=== PATIENT | male | born 1965 | race Caucasian/White ===

== ENCOUNTER 2017-02-24 21:32 | Emergency (ER) | payer OTHER ==
[~2017-02-24] VITALS: Ht 177.8 cm; Wt 108.9 kg
[2017-02-24 21:47] LABS: URINE BILIRUBIN - DIPSTICK NEGATIVE (NEG); URINE BLOOD 3+ (NEG)
[2017-02-24] MEDS ORDERED: LISINOPRIL40 MG PO (21:49)
[2017-02-24] MEDS ORDERED: GABAPENTIN300 MG PO (21:49)
[2017-02-24] MEDS ORDERED: ASPIRIN 325MG325 MG PO (21:50)
[2017-02-24] MEDS ORDERED: PLAVIX 75MG TAB75 MG PO (21:50)
[2017-02-24] MEDS ORDERED: METOPROLOL TAR100 MG PO (21:51)
[2017-02-24] MEDS ORDERED: DOXAZOSIN MESYLA1 MG NG (21:51)
[2017-02-24 22:05] LABS: HEMOGLOBIN 15.6 g/dL (14.1-18.0); LYMPH # 2.7 K/mm3 (0.7-4.5); LYMPH % 40.4 % (10-50)
--- OUTSIDE RECORDS SUMMARY | 2017-02-24 22:10 | External Medical Summary Rpt | CCD ---
Author Author [facility] Organization [facility] Address Unknown Phone Unavailable Purpose Continuity of Care Document - through 2016
--- OUTSIDE RECORDS SUMMARY | 2017-02-24 22:11 | External Medical Summary Rpt | CCD ---
Demographics Preferred Language Sinhala Marital Status Unknown Yarsani Affiliation Unknown Race Unknown Ethnic Group Unknown Author Author , DIMAS COCHRAN Address Unknown Phone Immunization No patient found.
--- OUTSIDE RECORDS SUMMARY | 2017-02-24 22:11 | External Medical Summary Rpt | CCD ---
Demographics Preferred Language Belarusian Marital Status Unknown Episcopalian Affiliation Unknown Race Unknown Ethnic Group Unknown Author Author , DIMAS COCHRAN Address Unknown Phone Immunization No patient found.
[2017-02-25] MEDS ORDERED: CIPRO 500MG TA500 MG PO (00:04)
--- NOTE | 2017-02-25 00:06 | Emergency Room Report ---
History of Present Illness Time Seen by [id number] Presenting Problem in Triage Pt arrived:Walked Presenting Problem:STATES LARGE AMOUNT OF BLOOD IN URINE, REPORTS BURNING WITH URINATION DENIES ANY PAIN Onset of symptoms date/time:02/24/17 or onset unknown for: Treatment Prior to Arrival: ELEVATOR PILOT Provided by: Sepsis Risk Assessment: Temp: 98.6 B/P: 151/88 MAP: 65 Pulse: 94 Resp: 22 Recent fever? N Clinical Suspician of Infection? N Mental Status: 1 - Regular (Normal Baseline) Sepsis Risk:Low Sepsis Risk Have you (or family members/close friends) recently traveled outside the [place]? N If Yes, where/when: Have you had exposure to infectious disease within the past month? N TB? Other? Specify: Source patient, RN notes reviewed, family, old records Exam Limitations no limitations Comment episode of hematuria tonight and has no penile d/c - no hx of kidney stone Cardiac Chest Pain Chest pain indicative of cardiac No Timing/Duration this evening Severity moderate ALLERGIES Coded Allergies: Sulfa (Sulfonamide Antibiotics) (Intermediate, WHIVES 02/24/17) Home Medications Reported Medications Gabapentin (Gabapentin 300MG) 300 MG PO QHS Lisinopril (Lisinopril 40MG) 40 MG PO DAILY CLOPIDOGREL BISULFATE (PLAVIX) 75 MG PO DAILY ASPIRIN (Aspirin 325MG) 325 MG PO DAILY Metoprolol Tartrate (Metoprolol 100MG) 100 MG PO BID Doxazosin Mesylate (Doxazosin) 4 MG NG QHS History Medical History General CAD? Yes Angina: Yes [place]: Yes Hypertension? Yes Hyperlipidemia? No CHF? No DVT? No PE? No COPD? No Asthma? No Anemia? No GERD? No Gastric ulcers? No GI Bleed? No Hernia? No Thyroid Problems? No Hypothyroidism? No CVA? No Seizures? No Diabetes? No Renal Insuffiency? No End Stage Renal Disease? No UTI? No Stones? No BPH? No GB Disease: Yes Nephritic Syndrome? No Asplenia? No Hepatitis? No Sickle Cell Disease? No Arthritis? Yes Migraines? No Cataracts? No Glaucoma? No MRSA? No HIV? No TB? No Anxiety? Yes Depression? No Cancer? No More? 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 Respiratory denies cough, denies shortness of breath, denies wheezing Cardiovascular denies chest pain, denies syncope Gastrointestinal denies abdominal pain, denies diarrhea, denies vomiting Genitourinary see HPI, dysuria, hematuria. denies: frequency, hesitancy, scrotal/testicular pain, hx stds, genital lesions. Musculoskeletal denies back pain, denies joint pain, denies joint swelling, denies neck pain Skin denies rash Psychiatric/Neurological denies headache, denies seizure Physical Exam Vital Signs Vital Signs Date Time Temp Pulse Resp B/P Pulse O2 O2 Flow FiO2 Ox Delivery Rate 02/24 2340 94 22 151/88 97 02/24 2300 106 22 158/118 97 02/24 2143 98.6 110 18 174/11 94 - WBC >12,000 or <4,000 or 10% bands? 2 or more SIRS Criteria Met? B/P:151/88 MAP:65 Creatinine >2.0? UA output<0.5ml/kg/hr for 2 hrs? Platelet count >100,000? Lactate >2.0mmol/1? INR >1.2 or PTT > than 60 sec? Evidence of Organ Dysfunction? Provider documented clinical suspician of infection? N Sepsis Criteria Count: 1 Sepsis Risk: Low Sepsis Risk General Appearance no apparent distress Eye Exam - bilateral eye PERRL, bilateral eye EOMI Ear, Nose, Throat normal ENT inspection Neck supple Respiratory Status No: respiratory distress. 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 No Results/Orders Laboratory Tests 02/24/175: Sodium 143, Potassium 3.0 L, Chloride 106, Carbon Dioxide 26, BUN 12, Creatinine 1.1, Estimated Creat Clear 124, Estimated GFR (MDRD) 71, Glucose 146 H, Calcium 8.9, Total Bilirubin 0.4, AST 27, ALT 69, Alkaline Phosphatase 96, Total Protein 7.3, Albumin 4.3, Globulin 3.0, Albumin/Globulin Ratio 1.4, WBC 6.6, RBC 4.89, Hgb 15.6, Hct 45.6, MCV 93.3, RDW 13.2, Plt Count 225, MPV 7.2 L , Gran % 49.3, Gran # 3.3, Lymphocytes % 40.4, Monocytes % 7.2, Eosinophils % 2.5, Basophils % 0.6, Lymphocytes # 2.7, Monocytes # 0.5, Eosinophils # 0.2, Basophils # 0.0, PUBS MCHC 34.2, MCH 31.9 H 02/24/172134: Urine Color DK YELLOW, Urine Appearance CLOUDY, Urine pH 6.5, Ur Specific [place] 1.020, Urine Protein NEGATIVE, Urine Ketones TRACE H, Urine Blood 3+ H , Urine Nitrate NEGATIVE, Urine Bilirubin NEGATIVE, Urine Urobilinogen 0.2, Ur Leukocyte Esterase NEGATIVE, Urine RBC TNTC, Ur Squamous Epith Cells 3-5, Urine Glucose NEGATIVE Current Medication Orders Sig/Kathy Start time Last Medication Dose Route Stop Time Status Admin Levofloxacin 500 MG ONCE ONE 02/25 15 AC PO 02/26 16 Sodium Chloride 10 ML PRN PRN 02/24 2145 AC IV 02/25 2135 Orders Procedure Date/time Status DIET-NOTHING BY MOUTH 02/[address] ABD & PELVIS W/O CONTRAST 02/[address] ABD/PELVIS REQ 02/24 2135 Active IV SALINE LOCK 02/24 2135 Active URINALYSIS/COMPLETE 02/24 2135 Complete CBC WITH AUTO DIFF 02/24 2135 Complete CHEM 12 PROFILE 02/24 2135 Complete XRAY/CT/US XRAY/CT/US CT abdomen, pelvis CT interpretation by discussed w/radiologist Time results known: 0002 CT Results abnormal Departure Departure Time of Disposition 0003 Disposition DC Home or Self Care(routine) Clinical Impression Primary Impression: Hematuria Qualifiers: Hematuria type: gross Qualified Code: R31.0 - Gross hematuria Condition STABLE Referrals Elida GIBBONS,Mor Pedersen MD,Doroteo Patient Instructions DI for Hematuria Additional Instructions use meds and see pcp for follow up Discharge Counseling Counseled pt/family regarding diagnosis, test results, medications/RX, follow up needs Prescriptions Current Visit Scripts Ciprofloxacin HCl (Cipro 500MG TAB) 500 MG PO BID #14 TAB ED Critical Care Critical Care No at 0005
[2017-02-25 00:18] VITALS: BP 151/88
--- NOTE | 2017-02-25 10:51 | RADIOLOGY REPORT PS360 ---
CT ABD PELVIS W/O CONTRAST HISTORY: HEMATURIA gross hematuria. Pain with urination. Patient Age: 51 years: Male Ordering Physician: Lily Downey MD TECHNIQUE: Helical CT scanning performed the abdomen and pelvis with no oral nor IV contrast. COMPARISON :No previous studies available for comparison. FINDINGS Lung bases. No acute findings. Clear. Abdomen/pelvis. Lack of oral and IV contrast decreases sensitivity. Liver. No focal lesions. Minimal subtle diffuse fatty changes. 3. Normal size. Pancreas unremarkable. Adrenals unremarkable. Gallbladder is been removed. Kidneys. No urinary tract calculi nor obstruction. Ureters unremarkable. Mild stranding about both kidneys likely reflecting mild chronic changes. Correlation with urinalysis to exclude infection warranted. Slight lobulation of both kidneys most likely normal lobulation but if hematuria persists a follow-up postcontrast CT to further evaluate kidneys may be of benefit and suggested. . Pelvis. Urinary bladder appears satisfactory with upper normal wall thickness. Subtle urachal remnant extending from the anterior superior aspect of bladder. Prostate is appears satisfactory measuring up to 5 cm and with minimal central calcification. In size similar vesicles unremarkable. No pelvic adenopathy. No free fluid or air. GI tract.q appendix appears normal and is identified right lower quadrant. Terminal ileum region satisfactory. Mild to moderate stool throughout colon. Moderate Diverticulosis most notable at the sigmoid colon. No diverticulitis. Small bowel appears normal. Stomach:. Food filled distended stomach reflecting recent meal. Otherwise unremarkable L4/5. Disc space narrowing but note postsurgical changes at this level with disc spacer devices in place. Facet hypertrophy/arthropathy at the lower 2 levels L-spine. Note moderate spinal canal with likely developing spinal stenosis developing at L2/3 & L3/4 IMPRESSION: 1. No acute findings abdomen or pelvis. 2. No urinary tract calculi nor obstruction. . No appreciable renal mass on today's noncontrast study Mild stranding about both kidneys likely reflecting mild chronic changes. 3. Prostate moderate size and unremarkable. Urinary bladder satisfactory with upper normal wall thickness. No findings account for gross hematuria on this noncontrast study.. Consider follow-up CT with contrast and delayed images if hematuria persists 4. Diverticulosis most notable at sigmoid colon. No diverticulitis.
== END 2017-02-25 00:18 | disposition home or self-care (01) ==
LOC: ER 21:32
PROVIDERS: Emergency Medicine
DX: R31.0 Gross hematuria (principal); I25.10 Atherosclerotic heart disease of native coronary artery without angina pectoris; I25.2 Old myocardial infarction; I10 Essential (primary) hypertension; Z95.0 Presence of cardiac pacemaker; Z87.891 Personal history of nicotine dependence; Z79.02 Long term (current) use of antithrombotics/antiplatelets; Z79.82 Long term (current) use of aspirin; Z79.899 Other long term (current) drug therapy